=== PATIENT | male | born 1960 | race Caucasian/White ===

== ENCOUNTER → 2020-08-06 | Outpatient (CLI) | payer OTHER ==
--- NOTE | 2020-08-06 15:24 | XR ---
EXAMINATION TYPE: XR lumbar spine 2 or 3V DATE OF EXAM: 08/06/2020 CLINICAL HISTORY: pain TECHNIQUE: Three views of the lumbar spine are submitted. COMPARISON: None. FINDINGS: There is evidence of fusion extending from T11 through L3. Pedicular screws are seen bilaterally. The re is loss of height involving the superior superior endplate of L1 of uncertain age and/or etiology. Degenerative disc space narrowing and spondylosis seen throughout. IMPRESSION: As above ICD 10 NO FRACTURE, INITIAL EVALUATION
== END | disposition home or self-care (01) ==
LOC: RADXRMAIN 14:55
DX: M43.26 Fusion of spine, lumbar region (principal)
CPT/HCPCS: 72100

== ENCOUNTER → 2020-09-24 | Outpatient (CLI) | payer OTHER ==
[2020-09-24 15:23] LABS: African American GFR (CKD) 112.5 (60.0-200.0); Albumin 4.6 g/dL (3.80-4.90); Albumin/Globulin Ratio 2.42 (1.60-3.17); Anion Gap 6.4 mmol/L (4.00-12.00); BUN/Creat Ratio 22.5 Ratio (12.00-20.00); Calcium 9.4 mg/dL (8.7-10.3); Carbon Dioxide 31.6 mmol/L (21.6-31.8); Globulin 1.9 g/dL (1.6-3.3); Non-African American GFR(CKD) 97.1 (60.0-200.0); Potassium 3.8 mmol/L (3.5-5.5); Total Bilirubin 0.6 mg/dL (0.3-1.2); Total Protein 6.5 g/dL (6.2-8.2)
[2020-09-24 15:28] LABS: Basophils # (A) 0.04 X 10*3/uL (0.00-0.10); Basophils % (A) 0.7 %; Eosinophils # (A) 0.22 X 10*3/uL (0.04-0.35); Eosinophils % (A) 3.7 %; HCT 44.1 % (39.6-50.0); HGB 14.6 g/dL (13.0-17.0); Lymphocytes # (A) 1.09 X 10*3/uL (0.90-5.00); Lymphocytes % (A) 18.4 %; MCH 30.4 pg (27.0-32.0); MCHC 33.1 g/dL (32.0-37.0); MCV 91.9 fL (80.0-97.0); Mean Platelet Volume 11.1 fL (9.5-12.2); Monocytes # (A) 0.47 X 10*3/uL (0.20-1.00); Monocytes % (A) 7.9 %; Neutrophils # (A) 4.09 X 10*3/uL (1.80-7.70); Neutrophils % (A) 69.1 %; Platelet Count 231 X 10*3/uL (140-440); WBC 5.92 X 10*3/uL (4.50-10.00)
== END | disposition home or self-care (01) ==
LOC: LABWHC1 09:48
PROVIDERS: ATTEND Nurse Practitioner Family
DX: I10 Essential (primary) hypertension (principal)
CPT/HCPCS: 36415; 80053; 85025

== ENCOUNTER → 2020-09-24 | Outpatient (CLI) | payer OTHER ==
--- NOTE | 2020-09-24 11:20 | XR ---
EXAMINATION TYPE: XR lumbar spine 2 or 3V DATE OF EXAM: 09/24/2020 Comparison: 08/06/2020 Clinical History: 60-year-old male M43.26 lumbar fusion Findings: Post surgical changes of T11-L3 posterior lumbar fusion. Laminectomies at the L1 level. Seems to be s ome mild bony consolidation of lateral osseous fusion changes at this level as well. Facet arthropath y lower lumbar spine. Superior endplate compression injury of L1 with resulting anterior wedging and mild retropulsion into the ventral spinal canal appears unchanged radiographically. Alignment is main tained. Mild disc space narrowing L4-L5 and L5-S1. Bridging anterior endplate spondylosis lower thora cic spine. Metallic density projecting in the lower abdomen on the lateral view, query old retained b ullet fragment, also present on the prior exam. Impression: 1. Status post posterior fusion from T11 down through L3 with stable anterior wedging compression def ormity of L1 along with stable mild retropulsion into the ventral spinal canal at this level. 2. Redemonstrated L1 laminectomy change and suggestion of some bone graft material showing progressiv e consolidation relating to lateral osseous fusion changes here at L1-L2. 3. Facet arthropathy lower lumbar spine and mild degenerative disc disease lower lumbar spine. Suspec t DISH within the lower thoracic spine. 4. No malalignment.
== END | disposition home or self-care (01) ==
LOC: RADXRMAIN 09:18
PROVIDERS: ATTEND Student in an Organized Health Care Education/Training Program
DX: M51.36 Other intervertebral disc degeneration, lumbar region (principal); M47.816 Spondylosis without myelopathy or radiculopathy, lumbar region; M43.8X6 Other specified deforming dorsopathies, lumbar region; Z98.1 Arthrodesis status; Z98.890 Other specified postprocedural states
CPT/HCPCS: 72100